=== PATIENT | female | born 1940 | race Caucasian/White ===

== ENCOUNTER → 2020-07-05 12:07 | Outpatient (BNVA) | payer MEDICARE, OTHER, SELFPAY | PROVIDERS: Visit Provider Internal Medicine Gastroenterology | DX: Z13.89 Encounter for screening for other disorder (principal) | CPT/HCPCS: Q3014 ==

== ENCOUNTER 2020-09-01 09:53 | Outpatient (REF) | payer MEDICARE, OTHER, SELFPAY ==
[2020-09-01 13:42] LABS: Ferritin 297 ng/mL (10-250)
== END 2020-09-01 09:54 | disposition home or self-care (01) ==
LOC: HO.BBR 09:53
PROVIDERS: PCP Internal Medicine; Visit Provider Internal Medicine Hematology & Oncology
DX: E83.110 Hereditary hemochromatosis (principal)
CPT/HCPCS: 36415; 82728

== ENCOUNTER 2020-09-15 09:36 | Outpatient (REF) | payer MEDICARE, OTHER, SELFPAY ==
[2020-09-15 12:52] LABS: Ferritin 259 ng/mL (10-250)
== END 2020-09-15 09:37 | disposition home or self-care (01) ==
LOC: HO.BBR 09:36
PROVIDERS: Visit Provider Internal Medicine Hematology & Oncology
DX: E83.110 Hereditary hemochromatosis (principal)
CPT/HCPCS: 36415; 82728

== ENCOUNTER 2020-09-29 10:29 | Outpatient (REF) | payer MEDICARE, OTHER, SELFPAY | END 2020-09-29 10:30 | disposition home or self-care (01) | LOC: HO.BBR 10:29 | PROVIDERS: Visit Provider Internal Medicine Hematology & Oncology | DX: Z13.89 Encounter for screening for other disorder (principal) ==

== ENCOUNTER 2020-12-01 13:05 | Outpatient (REF) | payer MEDICARE, OTHER, SELFPAY ==
[2020-12-01 15:22] LABS: Ferritin 114 ng/mL (10-250)
== END 2020-12-01 13:06 | disposition home or self-care (01) ==
LOC: HO.BBR 13:05
PROVIDERS: Visit Provider Internal Medicine Hematology & Oncology
DX: E83.110 Hereditary hemochromatosis (principal)
CPT/HCPCS: 36415; 82728

== ENCOUNTER 2021-02-07 09:14 | Outpatient (REF) | payer MEDICARE, OTHER, SELFPAY ==
--- NOTE | ~2021-02-07 | MM_ITS ---
EXAMINATION: BONE DENSITOMETRY CLINICAL INDICATION: History of osteoporosis, follow up. Other specified disorders of bone density and structure. Postmenopausal. COMPARISON: Previous BD dated 11/25/2017 and baseline BD dated 10/02/2006. TECHNIQUE: Using a [employer] DXA System (software version: 13.1) manufactured by [employer], dual-energy x-ray absorptiometry was performed of the lumbar spine and left hip. The images are of good technical quality. Summary results are attached. FINDINGS: AP SPINE L1-L4: Current: BMD 0.840 g/cm2, Z-score -1.5, T-score -2.8, osteoporosis, 2.7% increase from previous, 6.6% decrease from baseline (<5% change is not significant). Prior: BMD 0.818 g/cm2. Baseline: BMD 0.899 g/cm2. LEFT FEMUR, NECK: Current: BMD 0.680 g/cm2, Z-score -0.7, T-score -2.6, osteoporosis. Prior: BMD 0.674 g/cm2. Baseline: BMD 0.705 g/cm2. LEFT FEMUR, TOTAL: Current: BMD 0.813 g/cm2, Z-score 0.1, T-score -1.5, osteopenia, 3.3% increase from previous, 3.4% decrease from baseline (<5% change is not significant). Prior: BMD 0.787 g/cm2. Baseline: BMD 0.842 g/cm2. IDENTIFIED RISK FACTORS: Osteoporosis. Recurrent falls. History of fracture, (adult). Menopause. HISTORY OF FRACTURE: Femur/hip. Elbow. Wrist. MEDICATIONS: None listed. MM/XR DEXA axial skeleton IMPRESSION: 1. DIAGNOSIS: Osteoporosis based on the lowest T-score value of -2.8 in the lumbar spine applying World Health Organization criteria. 2. 10-YEAR FRACTURE RISK PREDICTION, FRAX: Major osteoporotic fracture (clinical spine, forearm, hip or shoulder) 27.2%. Hip fracture 8.8%. 3. Treatment Recommendations: NOF guidelines recommend consideration for treatment in postmenopausal women and men age 50 and older presenting with the following: -A hip or vertebral (clinical or morphometric) fracture. -T-score less than or equal to -2.5 at the femoral neck or spine after appropriate evaluation to exclude secondary causes. -Low bone mass at the hip or spine and a 10-year fracture probability by FRAX of greater than or equal to 3% for hip fracture or greater than or equal to 20% for major osteoporotic fracture based on the [place] adapted WHO algorithm. 4. Other Recommendations: All treatment decisions require clinical judgment and consideration of individual patient factors, including patient preferences, comorbidities, previous drug use, risk factors not captured in the FRAX model (e.g. frailty, falls, vitamin D deficiency, increased bone turnover, interval significant decline in bone density) and possible under or overestimation of fracture risk by FRAX. Additional medical evaluation for secondary cause of low bone mineral density may be appropriate. FUTURE SCAN RECOMMENDATION: People with diagnosed cases of osteoporosis or at high risk for fracture should have regular bone mineral density tests. For patients eligible for Medicare, routine testing is allowed once every 2 years. The testing frequency can be increased to one year for patients who have rapidly progressing disease, those who are receiving or discontinuing medical therapy to restore bone mass, or have additional risk factors.
== END 2021-02-07 09:15 | disposition home or self-care (01) ==
LOC: HO.MAMMO 09:14
PROVIDERS: PCP Internal Medicine; Visit Provider Internal Medicine
DX: Z13.820 Encounter for screening for osteoporosis (principal); M81.0 Age-related osteoporosis without current pathological fracture; Z78.0 Asymptomatic menopausal state; Z87.81 Personal history of (healed) traumatic fracture
CPT/HCPCS: 77080

== ENCOUNTER 2023-05-30 10:12 | Outpatient (REF) | payer MEDICARE, OTHER, SELFPAY ==
--- NOTE | ~2023-05-30 | MM_ITS ---
EXAMINATION: BONE DENSITOMETRY CLINICAL INDICATION: Osteoporosis. COMPARISON: Previous BD dated 02/07/2021 and baseline BD dated 10/02/2006. TECHNIQUE: Using a [employer] DXA System (software version: 13.1) manufactured by [employer], dual-energy x-ray absorptiometry was performed of the lumbar spine and left hip. The images are of good technical quality. Summary results are attached. FINDINGS: LEFT FEMUR, NECK: Current: BMD 0.644 g/cm2, Z-score -1.0, T-score -2.8, osteoporosis. Prior: BMD 0.680 g/cm2. Baseline: BMD 0.705 g/cm2. LEFT FEMUR, TOTAL: Current: BMD 0.801 g/cm2, Z-score 0.1, T-score -1.6, osteopenia, 1.5% decrease from previous, 4.9% decrease from baseline (<5% change is not significant). Prior: BMD 0.813 g/cm2. Baseline: BMD 0.842 g/cm2. AP SPINE L1-L4: Current: BMD 0.929 g/cm2, Z-score -0.8, T-score -2.1, osteopenia, 10.6% increase from previous, 3.3% increase from baseline (<5% change is not significant). Prior: BMD 0.840 g/cm2. Baseline: BMD 0.899 g/cm2. IDENTIFIED RISK FACTORS: Height loss, history of fracture (adult), osteoporosis, recurrent falls, menopause, secondary osteoporosis. HISTORY OF FRACTURE: Femur/hip, wrist. Other. MEDICATIONS: Calcium supplements or multivitamin, vitamin D. MM/XR DEXA axial skeleton IMPRESSION: 1. DIAGNOSIS: Severe osteoporosis based on the lowest T-score value of -2.8 in the femur neck and history of fracture applying World Health Organization criteria. 2. 10-YEAR FRACTURE RISK PREDICTION, FRAX: According to the guidelines, FRAX calculation should only be performed on patients in the osteopenia bone density category. Therefore, FRAX was not performed on this patient. 3. Treatment Recommendations: NOF guidelines recommend consideration for treatment in postmenopausal women and men age 50 and older presenting with the following: -A hip or vertebral (clinical or morphometric) fracture. -T-score less than or equal to -2.5 at the femoral neck or spine after appropriate evaluation to exclude secondary causes. -Low bone mass at the hip or spine and a 10-year fracture probability by FRAX of greater than or equal to 3% for hip fracture or greater than or equal to 20% for major osteoporotic fracture based on the [place] adapted WHO algorithm. 4. Other Recommendations: All treatment decisions require clinical judgment and consideration of individual patient factors, including patient preferences, comorbidities, previous drug use, risk factors not captured in the FRAX model (e.g. frailty, falls, vitamin D deficiency, increased bone turnover, interval significant decline in bone density) and possible under or overestimation of fracture risk by FRAX. Additional medical evaluation for secondary cause of low bone mineral density may be appropriate. FUTURE SCAN RECOMMENDATION: People with diagnosed cases of osteoporosis or at high risk for fracture should have regular bone mineral density tests. For patients eligible for Medicare, routine testing is allowed once every 2 years. The testing frequency can be increased to one year for patients who have rapidly progressing disease, those who are receiving or discontinuing medical therapy to restore bone mass, or have additional risk factors.
== END 2023-05-30 10:13 | disposition home or self-care (01) ==
LOC: HO.MAMMO 10:12
PROVIDERS: PCP Internal Medicine; Visit Provider Internal Medicine Endocrinology, Diabetes & Metabolism
DX: Z13.820 Encounter for screening for osteoporosis (principal); M81.0 Age-related osteoporosis without current pathological fracture; Z78.0 Asymptomatic menopausal state
CPT/HCPCS: 77080

== ENCOUNTER 2025-06-17 12:20 | Outpatient (REF) | payer MEDICARE, OTHER, SELFPAY ==
--- OUTSIDE RECORDS SUMMARY | 2025-06-15 10:00 | XMS_ITS | Encounter Summary ---
Author Organization [facility] Address [address] [place] [address] Care Team Providers Care Cigar Head Perforator Name Role Phone Horace Levin MD Primary Care Provider [phone] Reason for Visit * Reason Comments Follow-up Encounter Details Date Type Department Care Team (Latest Contact Info) Description 06/15/2025 10:00 AM EST Office Visit [facility] Hematology Oncology [address] [place] [address] Cheko Nieto MD [address] [place] [address] Hereditary hemochromatosis (CMS/HCC V24) (Primary Dx) Social History Tobacco Use Types Packs/Day Years Used Date Smoking Tobacco: Former Cigarettes 1 Q uit: 07/28/1980 Smokeless Tobacco: Never Tobacco Cessation:Counseling Given: Not Answered Alcohol Use Standard Drinks/Week Comments No 0 (1 standard drink = 0.6 oz pur e alcohol) Comments Unknown Sex and Gender Information Value Date Recorded Sex Assigned at Female 03/03/2025 11:41 AM EDT Legal Sex Female 7:50 AM EST Gender Identity Female 03/03/2025 11:41 AM EDT Sexual Orientation Straight 03/03/2025 11 :41 AM EDT documented as of this encounter Last Filed Vital Signs Vital Sign Reading Time Taken Comments Blood Pressure 118/41 06/15/2025 9:56 AM EST Pulse 70 06/15/2025 9:56 AM EST Temperature 36.4 C (97.5 F) 06/15/2025 9:56 AM EST Respiratory Rate - - Oxygen Saturation 99% 06/15/2025 9:56 AM EST Inhaled Oxygen Concentration - - Weight 81.6 kg (180 lb) 06/15/2025 9:56 AM EST Height - - Body Mass Index 32.92 05/12/2025 1:37 PM EDT documented in this encounter Progress Notes * Cheko Nieto MD - 06/15/2025 10:00 AM EST Diagnosis/treatment: Hereditary hemochromatosis. Interval history: The patient is an 85-year-old female who is followed in our clinic for hereditary hemochromatosis. Hemochromatosis genotyping showed with mutations in C282Y and H63D. An MRI of the abdomen with contrast on 06/23/2020 showed low signal throughout the hepatic parenchyma on T2-weighted sequences and diffusion sequences, much darker than muscle; therefore, in keeping with effects of iron deposition. There was no evidence of cirrhosis. There were no hepatic masses. She was initiated on a phlebotomy regimen every 2 weeks at [facility]. She had a syncopal episode following the first phlebotomy. She haddifficulty tolerating phlebotomies due to feeling cold . She opted to discontinue phlebotomies. The feeling cold sensation resolved. She has adhered to dietary changes including eating no red meator pork or spinach or kale. She also presented with a macrocytosis without anemia. A reticulocyte count was unremarkable. A folate level on 02/15/2020 was normal. She denies heavy alcohol use. A B12 level on 12/26/2021 was mildly depressed at 230. A methylmalonic acid was normal at 0.23. A folate level was normal. A TSH was normal. She was trialed on oral B12 but had difficulty with left-sided abdominal pain. She self-discontinued the oral B12 and the abdominal pain resolved. A CBC on 02/04/2022 showed WBC 5.5, hemoglobin 14.7 with MCV 98, platelet count 224,000. A percent transferrin saturation was 36. A ferritin was 96. A B12 level was 296. She restarted a multivitamin with B12. She is tolerating the entire vitamin with B12 well without side effects. A CBC on 06/05/2022 showed WBC 6.4, hemoglobin 14.9 with MCV 101, and platelet count 236,000. A percent transferrin saturation was 41. A ferritin was 120. A B12 level was 677. A CBC on 12/03/2022 showed WBC 5.4, hemoglobin 14.4 with MCV 101, and platelet count 225,000. A percent transferrin saturation was 52. A ferritin was 96. A B12 level was 464. A CBC on 06/04/2023 showed WBC 5.6, hemoglobin 15.1 with MCV 102, and platelet count 238,000. LFTs were normal. A percent transferrin saturation was 45. A ferritin was 104. A B12 level was 554. A folate level was 14.7. A CBC on 12/15/2023 showed WBC 5.3, hemoglobin 14.2 with MCV 101, and platelet count 230,000. LFTs were normal. A percent transferrin saturation was 49. A ferritin was 92. A B12 level was 641. A CBC on 06/15/2024 showed WBC 4.8, hemoglobin 14.3 with MCV 101, and platelet count 225,000. A percent transferrin saturation was 59. A ferritin was 103. A B12 level was 685. A CBC on 10/08/2024 showed WBC 5.9, hemoglobin 14.1 with MCV 101, and platelet count 212,000. LFTs were normal. A percent transferrin saturation was 49. A ferritin was 121. A B12 level was 585. An echocardiogram on 05/12/2025 showed LVEF 55-60% and was otherwise unremarkable. A CBC on 06/10/2025 showed WBC 4.4, hemoglobin 14.0 with MCV 100, and platelet count 195,000. LFTs were normal. A percent transferrin saturation was 47. A ferritin was 117. She denies headaches or visual changes. She denies cough, hemoptysis, dyspnea on exertion. She denies nausea or abdominal pain. She reports an intact appetite and stable weight. Review of systems: The remainder of a 10 point review of systems was unremarkable. Physical examination: HEENT: Sclerae anicteric, normal oropharyngeal membrane. Neck: No lymphadenopathy. Lungs: Clear to auscultation. Heart: No murmurs. Abdomen: Soft, nontender, no organomegaly or masses. Extremities: No edema. Skin: No rash. Neurologic: Normal gait. Assessment/plan: The patient is an 85-year-old female who is followed in our clinic for history of hereditary hemochromatosis. She had difficulty tolerating phlebotomies due to feeling cold . She opted to discontinue phlebotomies. The ferritin decreased sharply following the initial phlebotomies. She adheres to dietary changes and eats no red meat or pork or spinach or kale. The iron studies remain in the normalrange. At age 85, she is unlikely to accumulate enough hepatic iron to cause liver damage. LFTs have remained normal. An echocardiogram in 04/2025 was unremarkable. She also presented with a macrocytosis without anemia. A reticulocyte count was normal. LFTs have remained normal. A TSH was normal. She denies heavy alcohol use. A B12 level was mildly depressed on 12/26/2021. However, methylmalonic acid was in the normal range. She was trialed on oral B12, but had difficulty left-sided abdominal pain, which resolved off B12. Afollow-up B12 level on 02/04/2022 was normal. She restarted a multivitamin with B12 and is tolerating therapy well. The B12 level remains in the normal range. We will monitor CBCs, LFTs, iron studies, and B12 levels. Visit summary: The patient is an 85-year-old female who is followed for hereditary hemochromatosis. Iron studies remain in the normal range off of the phlebotomy regimen. LFTs remain in the normal range. An echocardiogram in 04/2025 was unremarkable. At age 85 she is unlikely to accumulate enough hepatic iron to c ause liver damage. We will continue to observe iron studies and LFTs off phlebotomies. documented in this encounter Plan of Treatment Upcoming Encounters Date Type Department Care Team (Late st Contact Info) Description 06/22/2025 9:00 AM EST Office Visit Urogynecology [address] [phone] Shahnaz Luo MD [address] [place] [address] [address] [place] [address] 08/04/2025 10:00 AM EST Office Visit [facility] - [address] [phone] Horace Levin MD [address] [place] [address] [place] [address] 12/09/2025 9:30 AM EDT Office Visit [facility] Hematology Oncology [address] [place] [address] Cheko Nieto MD [address] [place] [address] documented as of this encounter Goals Goal Patient Goal Type Associated Problems Recent Progress Patient-Stated? Author LTG's 12 visits General Yes Otis Overton, PT Note: Pt will reports buttock pain of no more than 2/10 during standing or walking. Pt will demonstrate a 1 grade in core and LE strength deficits to increase tolerance to household IADL's. Pt will be Independent and compliant with final HEP. Pt will I demonstrate proper technique for sup<->sit transfers in 5/5 trials. documented as of this encounter Visit Diagnoses Diagnosis Hereditary hemochromatosis (CMS/HCC V24)- Primary Hereditary hemochromatosis documented in this encounter Care Teams Cigar Head Perforator Relationship Specialty Start Date End Date Horace Levin MD [address] [place] [address] PCP - General Internal Medicine 09/01/24 documented as of this encounter
--- NOTE | ~2025-06-17 | MM_ITS ---
EXAMINATION: DXA BONE DENSITY AXIAL HISTORY: OSTEOPOROSIS TECHNIQUE: path intelligence Dual energy absorptiometry (DEXA) of the lumbar spine, total left hip, and femoral neck was performed. COMPARISON: Comparison is made with the prior examination dated 05/30/2023. FINDINGS: The bone mineral density of the lumbar spine is 0.888 g/cm2, corresponding to a T-score of -2.4, and a Z-score of -1.1. This is indicative of osteopenia. This represents a BMD change of -4.4% compared to the prior exam. This is statistically significant. The bone mineral density of the left total hip is 0.792 g/cm2, corresponding to a T-score of -1.7, and a Z-score of 0.1. This is indicative of osteopenia. This represents a BMD change of -1.1% compared to the prior exam. This is not statistically significant. The bone mineral density of the left femoral neck is 0.676 g/cm2, corresponding to a T-score of -2.6, and a Z-score of -0.6. This is indicative of osteoporosis. This represents a BMD change of 5.0% compared to the prior exam. FRACTURE RISK: The FRAX index suggests a ten year probability of major osteoporotic fracture of 26.7%, and of hip fracture 9.0%. MM/XR DEXA axial skeleton IMPRESSION: Based on bone mineral density, and according to World Health Organization (WHO) criteria, the diagnosis is consistent with osteoporosis. Statistically, 68% of repeat scans fall within 1 SD (+/- 0.010 g/cm2 for AP spine L1-L4) and 1 SD (+/- 0.012 g/cm2 for femur total) FRAX is a trademark of the [employer]'s [place] for Metabolic Bone Disease, a World Health Organization (WHO) Collaborating Center. Electronically signed by: Eze Henley MD 06/17/2025 01:09 PM [facility]
--- OUTSIDE RECORDS SUMMARY | 2025-06-17 08:45 | XMS_ITS | Encounter Summary ---
Author Organization [facility] Address [address] [place] [address] Care Team Providers Care Glass Fitter Name Role Phone Horace Levin MD Primary Care Provider [phone] Reason for Visit * Reason Comments Hyperlipidemia Thyroid Problem Encounter Details Date Type Department Care Team ([facility] Contact Info) Description 06/17/2025 8:45 AM EST Office Visit Adult Medicine [facility] [place] [address] [place], [place] [phone] Horace Levin MD [address] [place] [address] Hypothyroidism, unspecified type (Primary Dx); Hyperlipidemia, unspecified hyperlipidemia type; Elevated blood pressure reading; Hand cramp Social History Tobacco Use Types Packs/Day Years Used Date Smoking Tobacco: Former Cigarettes 1 Q uit: 07/28/1980 Smokeless Tobacco: Never Alcohol Use Standard Drinks/Week Comments No 0 [...] Sign Reading Time Taken Comments Blood Pressure 120/70 06/17/2025 9:19 AM EST Pulse 69 06/17/2025 8:38 AM EST Temperature 36.6 C (97.8 F) 06/17/2025 8:38 AM EST Respiratory Rate - - Oxygen Saturation - - Inhaled Oxygen Concentration - - Weight 81.6 kg (180 lb) 06/17/2025 8:38 AM EST Height 157.5 cm (5' 2 ) 06/17/2025 8:38 AM EST Body Mass Index 32.92 06/17/2025 8:38 AM EST documented in this encounter Patient Instructions * Attachments The following attachments cannot be sent through Care Everywhere. * Diet: DASH (Colombian) * Exercise: General Info (Colombian) * Hypertension (Colombian) * Healthy Diet: Heart (Colombian) documented in this encounter Progress Notes * Horace Levin MD - 06/17/2025 8:45 AM EST CHIEF COMPLAINT: Hyperlipidemia and Thyroid Problem IDENTIFIER: Jessika Raymond is a 85 y.o. old female. HPI: History of Present Illness The patient is an 85-year-old female who presents for evaluation of blood pressure, cholesterol management, thyroid management, urinary incontinence, and back pain. She reports a recent consultation with her gyro compass tester, Dr. Nieto, for hereditary hemochromatosis, during which her blood pressure was recorded as 118/41. She did not experience any dizziness at that time. A month prior, her management development specialist had also measured her blood pressure, which was within normal limits. She has no known history of hypertension. She has been under the care of an arthritis specialist for back pain, which has shown improvement. She is currently undergoing physical therapy sessions and has been advised to use a cane for longer distances. She is able to ambulate without the aid of a cane within her home. She rates her current back pain as significantly improved, attributing this to the exercises prescribed by her therapist. She has transitioned from using a cane to a walker. She has a scheduled follow-up appointment with her arthritis specialist in July 2025. She recently had blood work done by her management development specialist, which showed normal thyroid function. She is scheduled for a repeat test on 07/18/2025. She continues to take levothyroxine 75 mcg and reportsfeeling well on this dosage. Her TSH level is currently at 7.8, but she feels fine at that level. She is going for a bone density test at 12:30 this afternoon at [facility]. She maintains a balanced diet, primarily consisting of home-cooked meals, and avoids bread, rice, and pasta. She consumes gluten-free products and takes vitamins for cholesterol management. She has been unable to access her [email or web address] account to view her cholesterol levels. She does not consume red meat or fried food but admits to a preference for eggs and chips. She consumes goat butter, olive oil,avocado oil, and a variety of vegetables, including potatoes, salads, tomatoes, greens, beets, cabbage, [place] sprouts, carrots, broccoli, cauliflower, and spinach. She also consumes blueberries, cantaloupe, and kiwis. She occasionally indulges in [place] nuts, cashews, pecans, gluten-free pastries, and dark chocolate. She admits to a high salt intake. She consumes collagen drinks daily and takes calcium and magnesium supplements. She reports an incident this morning where her hand locked while brushing her teeth. She is unsure if she needs to increase her magnesium intake. She has an upcoming appointment with a urogynecologist on Friday. She experiences urinary incontinence, necessitating the use of pads, which are sometimes insufficient. She has been advised to perform Kegel exercises to strengthen her pelvic floor. Diet: Balanced diet, primarily home-cooked meals, avoids bread, rice, and pasta, consumes gluten-free products, goat butter, olive oil, avocado oil, a variety of vegetables, fruits, nuts, and collagen drinks. Living Condition: Lives with who has low vision and prostate enlargement. ROS: The remainder of review of systems is noncontributory. 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 Overweight (BMI 25.0-29.9) 11/19/2014 Osteoporosis 08/19/2014 Anxiety state 08/11/2014 Hypothyroidism 05/02/2014 SOCIAL HISTORY: Social History Tobacco Use Smoking status: Former Current packs/day: 0.00 Average packs/day: 1.0 packs/day Types: Cigarettes Quit date: 07/28/1980 Years since quittin.9 Smokeless tobacco: Never Substance Use Topics Alcohol use: No FAMILY HISTORY: Family Status Relation Name Status Father Mother No partnership data on file Family History[1] ACTIVE MEDICATIONS: Medications Taking[2] ALLERGIES: Albuterol, Amoxicillin-pot clavulanate, Atorvastatin, Azithromycin, Clavulanic acid, Doxycycline, Escitalopram, Fluticasone, Gluten, Lactose, Levofloxacin, Penicillins, Rosuvastatin, Simvastatin, Sulfa (sulfonamide antibiotics), and Sulfamethoxazole-trimethoprim PHYSICAL EXAM: Blood pressure 120/70, pulse 69, temperature 36.6 ??C (97.8 ??F), height 1.575 m (62 ), weight 81.6kg (180 lb). Body mass index is 32.92 kg/m??. BMI is greater than 25.0 (above the normal range) - see Plan Physical Exam General Appearance: Normal. Vital signs: Within normal limits. HEENT: Within normal limits. Respiratory: Clear to auscultation, no wheezing, rales or rhonchi. Cardiovascular: Regular rate and rhythm, no murmurs, rubs, or gallops. Skin: Warm and dry, no rash. Neurological: Normal. LABS: Results Labs - White Cell Count: Mildly decreased - Iron Level: Good - B12 Level: Good - Total Cholesterol: 12/2024, 237 - LDL Cholesterol: 12/2024, 150 - Triglycerides: 12/2024, Decreased - HDL Cholesterol: 12/2024, Fine - Thyroid Level: 7.8 Imaging - Heart Test: Minor changes with the valve but nothing that would significantly affect the functioning of the heart IMPRESSION: 1. Hypothyroidism, unspecified type 2. Hyperlipidemia, unspecified hyperlipidemia type 3. Elevated blood pressure reading PLAN: ALL MEDICATIONS WERE REVIEWED AND RECONCILED No orders of the defined types were placed in this encounter. Assessment & Plan 1. Blood pressure management: - Her blood pressure readings have shown variability, with a recent reading of 118/41 during a visit to Dr. Nieto and a current reading of 143/60. Repeat BP improved to 120/70 - She reports no dizziness. - A recheck of her blood pressure will be conducted before she leaves the clinic today. - She has no known history of hypertension. 2. Cholesterol management: - Her total cholesterol has increased to 237 from 230, and her LDL cholesterol has risen to 150 from 146 since her last check in 12/2024. - Triglycerides have decreased slightly, and HDL levels remain stable. - She is advised to reduce her intake of starchy foods such as bread, rice, pasta, red meat, deep-fried foods, and egg yolks. She is encouraged to consume more egg whites, olive oil, and avocado oil. - She is advised to limit her consumption of goat butter, pastries, and dark chocolate. She is advised to continue with her core meals, which include vegetables, beans, and chicken, and to limit snacking and collagen drinks until her next recheck in 3 months. 3. Thyroid management: - She is currently on levothyroxine 75 mcg, and her thyroid levels are stable but not optimal. - She reports feeling well at her current dosage. - Her thyroid levels will be rechecked on 07/18/2025. 4. Back pain: - She reports improvement in her back pain with ongoing physical therapy. - She can now walk inside her house without a cane and uses a cane for longer distances. - She is advised to continue her physical therapy sessions and home exercises. 5. Urinary incontinence: - She reports experiencing urinary incontinence, particularly at night. - She has an upcoming appointment with a urogynecologist for further evaluation and management. - Kegel exercises were discussed as a potential intervention. 6. Hand cramping: - She reports experiencing hand cramping while brushing her teeth. - Her calcium levels are normal, but magnesium and phosphorus levels have not been routinely checked. - These will be assessed in her next lab work. - She is advised to continue her current calcium and magnesium supplements until further notice. ADDITIONAL ORDERS: None Horace Levin MD on 06/17/2025 at 10:13 AM EST I have obtained verbal consent from Jessika Raymond prior to the recording. I have advised Jessika Raymond that she may refuse the recording and require the recording to be turned off at any time during this encounter. [1] Family History Problem Relation Name Age of Onset Stroke Father [place] at 79 Breast cancer Mother at 68 [2] Outpatient Medications Marked as Taking for the 06/17/25 encounter (Office Visit) with Horace Levin MD Medication Sig Dispense Refill acetaminophen (TYLENOL) 500 mg tablet Take 2 tablets (1,000 mg total) by mouth every 8 (eight) hours as needed. B complex-vitamin C-folic acid (DIALYVITE) 100-1 mg tablet Take by mouth daily. calcium carbonate/vitamin D3 (CALCIUM WITH VITAMIN D3 ORAL) Take 2 tablets by mouth 2 (two) times aday. cholecalciferol (VITAMIN D-3) 50 mcg (2,000 unit) tablet Take 2,000 Units by mouth daily. EPINEPHrine (EpiPen 2-Rogerio) 0.3 mg/0.3 mL injection Inject 0.3 mL (0.3 mg total) into the thigh oncedaily as needed. fish oil/omega-3/vitamin E (OMEGA-3 FATTY ACIDS PO) Take 1,500 mg by mouth 2 (two) times a day. levothyroxine (SYNTHROID, LEVOTHROID) 75 mcg tablet Take 1 tablet (75 mcg total) by mouth 1 (one) time each day before breakfast. MAGNESIUM ORAL Take 100 mg by mouth daily. multivitamin-folic acid-biotin (Mwqe-Yanx-Nyifw, wn-DA-wkyxoq,) 400-2,000 mcg tablet Take by mouth daily. PROTEIN HYDROLYSATE-COLLAGEN ORAL by Does not apply route. theanine 200 mg capsule Take by mouth. UNABLE TO FIND Misc Natural Products (LEG VEIN & CIRCULATION) TABS : Take by mouth daily UNABLE TO FIND MULTIPLE VITAMINS-CALCIUM PO Take by mouth daily documented in this encounter Plan of Treatment Upcoming Encounters Date Type Department Care Team (Late st Contact Info) Description 06/22/2025 9:00 AM EST Office Visit Urogynecology - [address] [phone] Shahnaz Luo MD [address] [place] [address] [address] [place] [address] 08/04/2025 10:00 AM EST Office Visit Adult Medicine [place] - [address] [phone] Horace Levin MD [address] [place] [address] 12/09/2025 9:30 AM EDT Office Visit [facility] Hematology Oncology [address] [place] [id number] Cheko Nieto MD [address] [place] [address] Scheduled Orders Name Type Priority Associated Diagnoses Orde r Schedule Magnesium Lab Routine Hand cramp Expected: 06/17/2025, Expires: 12/15/2025 Phosphorus Lab Routine Hand cramp 1 Occurrences starting 06/17/2025 until 06/17/2026 documented as of this encounter Goals Goal Patient Goal Type Associated Problems Recent Progress Patient-Stated? Author LTG's 12 visits General Yes Otis [place], PT Note: Pt will reports buttock pain of no more than 2/10 during standing or walking. Pt will demonstrate a 1 grade in core and LE strength deficits to increase tolerance to household IADL's. Pt will be Independent and compliant with final HEP. Pt will I demonstrate proper technique for sup<->sit transfers in 5/5 trials. documented as of this encounter Visit Diagnoses Diagnosis Hypothyroidism, unspecified type- Primary Hyperlipidemia, unspecified hyperlipidemia type Elevated blood pressure reading Elevated blood pressure reading without diagnosis of hypertension Hand cramp documented in this encounter Care Teams Glass Fitter Relationship Specialty Start Date End Date Horace Levin MD [address] [place] [address] PCP - General Internal Medicine 09/01/24 documented as of this encounter
--- OUTSIDE RECORDS SUMMARY | 2025-06-17 12:47 | XMS_ITS | Data Portability ---
Author Organization [place] [facility] Address [address] [place] [phone] Care Team Providers Care Owner [employer] Name Role Phone [facility] Prim sujatha Care Provider Assessment Encounter Date Assessment Date Assessment LastModified by Organization Details LastModified Time 06/27/2023 06/27/2023 Time On Scene with Patient: 00:30:43 Brief Overview: 83 y/o female c/o insect bite on the left side of her neck 8 days ago. the area is tender at times and looks red. she has been cleaning it with alcohol and applying cortisone and triple antibiotic ointment. she is worried it could be a tick bite of a stinger from a bee that is still attached to her neck. she denies fever, chills, body aches, GOLD, nausea, vomiting, cp, sob. Vital Signs: BP 136/78, HR 74, RR 18, T 97.9, O2 99% RA Exam: pleasant 83 y/o female well appearing, alert NAD sitting at her kitchen table. lungs: CTAB no wheezes rales or rhonchi. heart: RRR no murmur rubs or gallops. mouth: moist mucous membranes, no edema, erythema. skin: left lateral neck two small scabbed lesions, with localized erythema, no warmth, no drainage or edema. mild tenderness on palpation. DDx considered, with rationale: Shingles: considered but no vesicular lesions in dermatomal pattern. Foreign body: considered but no foreign body noted on exam. Cellulitis: considered but she is afebrile, no warmth, edema or drainage on exam. Sepsis: considered but she is afebrile, VS stable she does not appear septic. Results/ work up: n/a Proper Personal Protective Equipment (PPE), including gloves, eye protection and masks were donned and doffed appropriately and all equipment cleaned using approved technique with germicidal disposable wipes prior to and after care of this patient according to [facility]'s infection prevention protocols. [email or web address] Not available 06/27/2023 13:13:45 Plan of Treatment Reminders Order Date Submit Date Provider Last Modified By Organization Details Last Modified Time Details Appointments None recorded. Lab None recorded. Referral None recorded. Procedures None recorded. Surgeries None recorded. Imaging None recorded. Medication Orders mupirocin 2 % topical ointment 2022 023 [id number], [address] [facility] , [place], [address], 12:29:49 Patient TargetsNo targets recorded. Patient Instructions Encounter Date Encounter Id Patient Instructions Last Modified By Organization Details Last Modified Time 06/27/2023 [id number] Thank you for yo ur visit with [facility] today. We cannot always find the exact cause of your symptoms during your initial visit. Please follow up with your primary care provider or specialist within 2-3 days to be rechecked or seek medical attention if your symptoms do not go away or get worse. If you develop any new or worsening symptoms and need after hours care, please go to nearest ER and/or call 911. If you have additional concerns or develop a change in your condition between 8am-10pm, please call [facility] at [phone] to help navigate your care. Thank you for your visit with [facility] today. You were seen today for treatment of a wound. Please seek immediate medical attention if you develop increased pain, redness, or swelling of your wound. Also, you should be evaluated if the wound becomes warm to the touch, or if there is a cloudy, yellow-brown discharge from the wound. There is always the possibility of a hidden tendon injury or foreign object in the wound. If you have problems moving your arm or leg, or if you see red streaks up the arm or leg, seek immediate medical attention. If you develop any new or worsening symptoms and need after hours care, please go to nearest ER and/or call 911. If you have additional concerns or develop a change in your condition between 8am-10pm, please call [facility] at [phone] to help navigate your care. [email or web address] Not available 06/27/2023 13:19:26 Reason for Referral None Reported. Procedures Surgical History Date Name Laterality Status Provider Name and Address Organization Details Recorded Time operation on hip joint completed BLU Greene [address], [place], [address], [place] [facility] 06/27/2023 12:18:34 Appendectomy completed BLU Greene [address], [place], [address], [place] [facility] 06/27/2023 12:18:49 Imaging Results None recorded. Procedure Notes None recorded. Medical Equipment None Reported. Allergies Allergen ID Allergen Name Allergen Category Reaction Reaction Severity Criticality Documentation Date Start Date Code Code System Note Provider Name and Address Organization Details Recorded Time 028804 albuterol medicatio n Not available Not available Not available 06/27/2023 435 RxNorm BLU Greene [address] [place], [address], [place] [facility] 12:13:19 [id number] Crestor medicatio n Not available Not available Not available 06/27/2023 46117 4 RxNorm BLU Greene [address] [place], [address], [place] [facility] 12:13:30 948185 Levaquin medicatio n Not available Not available Not available 06/27/2023 15627 2 RxNorm BLU Greene [address] [place], [address], [place] [facility] 12:13:43 197742 Lexapro medicatio n Not available Not available Not available 06/27/2023 97198 1 RxNorm BLU Greene [address] [place], [address], [place] [facility] 12:13:50 041381 Lipitor medicatio n Not available Not available Not available 06/27/2023 31619 5 RxNorm BLU Greene [address], [place], [address], [place] [facility] 12:14:05 133994 Product containin g penicilli n (product) medicatio n Not available Not available Not available 06/27/2023 09897 8001 SNOMED Sheela BLU Sandoval [address], [place], [address], [place] [facility] 12:14:14 732729 simvastat in medicatio n Not available Not available Not available 06/27/2023 15627 RxNorm Sheela BLU Sandoval [address], [place], [address], [place] [facility] 12:14:30 058905 Zithromax medicatio n Not available Not available Not available 06/27/2023 91139 4 RxNorm Sheela BLU Sandoval [address], [place], [address], [place] [facility] 12:14:46 679127 cephalexi n medicatio n Not available Not available Not available 06/27/2023 2231 RxNorm Sheela VillafuerteBLU massey [address], [place], [address], [place] [facility] 12:15:11 [id number] doxycycli ne Not available Not available Not available Not available 06/27/2023 3640 RxNorm Sheela BLU Sandoval [address], [place], [address], [place] [facility] 12:15:31 Medications Name Sig Start Date Stop Date Status Note LastModified by Organization Details LastModified Time Synthroid 100 mcg tablet TAKE 1 TABLET BY MOUTH EVERY DAY active Not Available Not Available No t Available Alrex 0.2 % eye drops,suspe nsion APPLY ONE DROP INTO BOTH EYES TWICE A DAY OR NEEDED active Not Available Not Available No t Available mupirocin 2 % topical ointment APPLY A SMALL AMOUNT TO THE AFFECTED AREA BY TOPICAL ROUTE 2 TIMES PER DAY X 4-7 DAYS active Not Available Not Available No t Available ibuprofen 600 mg tablet TAKE 1 TABLET BY MOUTH EVERY 6 HOURS NEEDED FOR PAIN FOR UP TO 7 DAYS. active Not Available Not Available No t Available chlorhexidi ne gluconate 0.12 % mouthwash RINSE AND SWISH WITH 1/2 OUNCE BY MOUTH, THEN SPIT. USE 3 TIMES A DAY FOR 2 WEEKS 06/27 completed Not Available Not Available Not Available Vitals Date Recorded Body temperature Respiratory rate Heart rate Oxygen saturation Systolic And Diastolic Provider Name and Address Organization Details Last Updated DateTime 97.9 [degF] 18 /min 74 /min 99 % 136/78 mm[Hg] Not Available [facility] 12:15:19 Social History Question Answer Notes LastModified by [employer] Details LastModified Time Tobacco Smoking Status Former Smoker [facility] [place], [address], [place] [facility] 06/27/2023 12:17:47 Fall Risk: Do You Feel Unsteady When Standing Or Walking? No Information not available 06/27/2023 Excessive Alcohol Or Drug Use No Information not available 06/27/2023 Does This Patient Have A PCP? Yes [email or web address] Information not available 06/27/2023 Has The Patient Seen Their PCP In The Past 6 Months? Yes [email or web address] Information not available 06/27/2023 What Is Your Housing Situation Today? I Have Housing [email or web address] Information not available 06/27/2023 Sex: Unknown Functional Status Question Answer Note LastModified by [employer] Details LastModified Time Do you use any illicit or recreational drugs? No Information not available 06/27/2023 What is your level of alcohol consumption? None [email or web address] Information not available 06/27/2023 Mental Status None recorded. Family History Relationship Description Onset Age of this Age Resolved Age Notes LastModified by Organization Details LastModified Time Mother Malignant neoplasm of breast [email or web address] Not available 06/27 12:17:12 Father Myocardial infarction [email or web address] Not available 07/2022 12:17:28 Medical History Condition Response Diabetes N Coronary Artery Disease N CHF N Parkinson's Disease N Cancer N Stroke N Dementia N Hypothyroidism N Asthma N COPD N Depression N High Cholesterol Y Rheumatoid Arthritis N Pulmonary Embolism N Hypertension N Osteoporosis Y A-fib N Kidney Disease N Gynecological HistoryNo gynecological history recorded. Obstetrics History GPAL:G 0 P 0 0 0 0 Past Encounters Encounter ID Performer Location Encounter Start Date Encounter Closed Date Diagnosis/Indication Diagnosis SNOMED-CT Code Diagnosis ICD10 Code Diagnosis IMO Codes Diagnosis Note [id number] [facility] [address] [place] [address] 06/27/2023 12:10:06 06/27/2023 18:03:35 Bite of nonvenomous arthropod 456277540 W57.XXXA Status of condition: Acute. Testing/Re sults: n/a Discussion :suspect insect bite, since pt felt the sting/ bite right when it occurred.n o signs of infection noted today.keep the area clean and wash with warm water and soap. pat dry. no not clean with alcohol.st art Rx mupirocin ointment 2% apply to affected area bid x 4-7 days.recom mend cool compress prn. Plan & Management :follow up with pcp in 3-5 days or sooner prn.go to the ER with worsening symptoms increased pain, redness or lesions spread, fever, chills, cp, sob, edema, GOLD, vomiting, purulent drainage, warmth. Health Concerns Section Related Observation LastModified by Organization Detai ls LastModified Time None Recorded Concern Status LastModified by Organization Details LastModified Time None Recorded Advance Directives Directive None Recorded Payers Insurance Date Sequence Insurance Name Policy Number Policy Dumont Covered Member ID Dumont Member ID Guarantor Name 06/27/2023 1 *SELF PAY* Jessika Raymond [id number] Jessika Raymond 07/02/2023 1 MEDICARE B-[place]: [employer] Jessika Raymond [id number] Jessika Raymond 08/09/2023 2 [facility] ([facility]DEMNITY) [id number] Jessika Raymond Notes Date Note Type Note Provider Name and Address Organization Details Recorded Time 06/27/2023 text/html General HPI Template - DHReported by Patient 83 y/o female new to and provider with hx of hyperlipidemia, osteoporosis, anxiety, Mimi's thyroiditis, IBS, hemochromotosis, 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 pt reports on 06/19 she was coming in from outside when something flew into her neck and stung/ bit her. she came into her house and applied cool compress. lesion is tender. she was reading online that if it was a bee to be sure the stinger was not still attached use a credit card and rub it over the area multiple times. she states she did this and did see a smal black speck came off. she wanted to have the area checked. no fever, cp, sob, wheezing, other skin rash, redness, warmth, edema, drainage. pt worried she could have foreign body or tick bite. pt denies known tick bite, denies walking in wooded or tall grassy areas, no pets at home. BLU Greene [address] [place] [address] [place], [address], [place] [facility] 06/27/2023 13:20:13 OBGyn Episode No OBEpisode recorded.
--- OUTSIDE RECORDS SUMMARY | 2025-06-17 12:47 | XMS_ITS | Patient Health Record ---
Author Organization [facility] [place] Address [address] [place] [address] Care Team Providers Care Shop Laborer Name Role Phone Lilo Lange Primary Care Provider Beth Hairston Unavailable [phone] Allergies Allergen (clinical drug ingredient) Drug/Non Drug Allergy documented on EMR Reaction Allergy Type Onset Date Status albuterol Albuterol Unknown Drug Allergy Active amoxicillin / clavulanate Augmentin Unknown Drug Allergy Active sulfamethoxazole / trimethoprim Bactrim Unknown Drug Allergy Active rosuvastatin Crestor Unknown Drug Allergy Acti ve erythromycin Erythromycin diarrhea Drug Allergy A ctive Fluticasone Furoate Unknown Drug Allergy Active levofloxacin Levofloxacin Unknown Drug Allergy A ctive escitalopram Lexapro Unknown Drug Allergy Acti ve atorvastatin Lipitor Unknown Drug Allergy Acti ve albuterol ProAir HFA Unknown Drug Allergy Active simvastatin Simvastatin Unknown Drug Allergy Act ziggy sulfamethoxazole / trimethoprim Sulfamethoxazole-Tri methoprim Unknown Drug Allergy Active azithromycin Zithromax Unknown Drug Allergy Acti ve doxycycline Doxycycline Unknown Drug Allergy Act ziggy escitalopram Escitalopram Unknown Drug Allergy A ctive Gluten Gluten Unknown Allergy Active Lactose (Allergy) Unknown Allergy Ac tive Reason For Referral No Information Medications Medication SIG (Take, Route, Frequency, Duration) Notes Start Date End Date Status Nasal [place] Not-Taki ng Tirosint 112 MCG as directed Orally Not-Taking Hair Skin Nails Not- Taking Vitamin D3 1000 UNIT 1 capsule Orally On ce a day Not-Taking Probiotic Not-Taking [place] 3 Not-Taking Biotin Not-Taking Vitamin B-Complex No t-Taking Eye Drops Not-Taking Calcium Not-Taking Multivitamins as directed Orally Not-Taking Melatonin Not-Taking Theanine 200 MG as directed Orally Active Citalopram Hydrobromide 10 MG TAKE 1 TABLET BY MOUTH EVERY DAY Oral; Duration: 90 Not-Taking Synthroid 100 MCG 1 tablet on an empty stomach in the morning Orally Once a day Active Azithromycin 250 MG TAKE 2 TABLETS BY MOUTH TODAY, THEN TAKE 1 TABLET DAILY FOR 4 DAYS Oral; Duration: 5 Not-Takin g - Active Vitamin B12 Not-Taki ng Aspercreme 10 % as directed External ly bid; Duration: 30 days 02/12/2013 Not-Takin g Benadryl Not-Taking LORazepam 0.5 MG 1 tablet at bedtime as needed Orally Once a day Not-Taking Tylenol Not-Taking [place] 435 MG as directed Orally Not-Taking Social History Tobacco Use: Social History Observation Description Date Details (start date - stop date) Former Smoker NA - NA Tobacco Use/Smoking Question Answer Notes Are you a: former smoker Additional Findings: Tobacco Non-User Current no n-smoker Alcohol Screen Question Answer Notes Did you have a drink containing alcohol in the p ast year? No Points 0 Interpretation Negative Tobacco use other than smoking: Question Answer Notes Are you an other tobacco user? No Problems Problem Type SNOMED Code ICD Code Onset Dates Problem Status W/U Status Risk Notes Problem Disorder of joint of ankle and/or foot (583631109) Arthritis - Degenerative (719.97) Active confirmed Encounters Encounter Location Date Provider Diagnosis [facility] [place] [address] [place] [address] 12/13/2024 Beth Sloan Plan Of Treatment Pending Test Test Name Order Date X ray : Foot, right 3V 04/12/2022 [id number], Toes 04/12/2022 Insurance Providers Payer Name Payer Address Payer Phone Subscriber Number Group Number Insured Name Patient Relationship to Insured Coverage Start Date Coverage End Date Medicare [facility] [address] [place] [address] [id number] Jessika Raymond Self - patient is the insured [facility] [address] [facility] [address] [place] [address] [phone] [id number] Jessika Raymond Self - patient is the insured Medical (General) History Medical History History ICD Code anxiety broken bones cataracts chicken pox measles osteoporosis thyroid disorder joint implants/screws transfusions Arthritis Back,Hip,and Knee pain Headaches/Migraines chronic sinusitis Mumps hypothyroid IBS nonceliac-gluten sensitivity Depression Bone implants/screws Surgical History Surgery Date(Month/Year) elbow surgery 2006 bladder surgery hemocromotosis right leg - screws left elbow appendectomy 09/17 cataract surgery Hospitalization History Reason Date(Month/Year) fractured arm 2007
--- OUTSIDE RECORDS SUMMARY | 2025-06-17 12:47 | XMS_ITS | Patient Health Record ---
Author Organization [facility] Address [address] [place] [address] Care Team Providers Care Technical Healthcare Consultant Name Role Phone Fabián Diamond Jr [phone] Reason For Referral No Information Plan Of Treatment No Information
--- OUTSIDE RECORDS SUMMARY | 2025-06-17 12:47 | XMS_ITS | Encounter Summary ---
Author Organization [facility] Address [address] [place] [address] Care Team Providers Care Reading Interventionist Name Role Phone Horace Levin MD Primary Care Provider [phone] Encounter Details Date Type Department Care Team (Late Contact Info) Description 05/26/2025 Results [place] [facility] [place] [address] [place] [address] Horace Levin MD [address] [place], [place] Social History Tobacco Use Types Packs/Day Years [...] AM EDT documented as of this encounter Plan of Treatment Upcoming Encounters Date Type Department Care Team (Late Contact Info) Description 06/22/2025 9:00 AM EST Office Visit Urogynecology [address] [phone] Shahnaz Luo MD [address] [place] [address] [address] [place] [address] 08/04/2025 10:00 AM EST [place] [facility] [place] [address] [place] [address] Horace Levin MD [address], [place] 12/09/2025 9:30 AM EDT Office Visit [facility] Hematology Oncology [address] [place] [address] Cheko Nieto MD [address] [place] [address] documented as of this encounter [...] documented as of this encounter Visit Diagnoses Not on filedocumented in this encounter Care Teams Reading Interventionist Relationship Specialty Start Date End Date Horace Levin MD [address] [facility] [place] PCP - General Internal Medicine 09/01/24 documented as of this encounter
--- OUTSIDE RECORDS SUMMARY | 2025-06-17 12:47 | XMS_ITS | Clinical Summary ---
Author Organization [facility] Address [address] [place] [address] Care Team Providers Care Vending Stand Supervisor Name Role Phone Makeda Levin MD Primary Care Provider [phone] Allergies Active Allergy Reactions Criticality Noted Date Comments Albuterol 05/26/2020 Amoxicillin-Pot Clavulanate 05/29/20 20 Sulfamethoxazole-Trimethoprim 2019 Rosuvastatin 05/26/2020 Doxycycline 05/26/2020 Fluticasone 05/26/2020 Gluten Meal 05/26/2020 Lactose 05/26/2020 Levofloxacin 05/26/2020 Escitalopram 05/26/2020 Atorvastatin 05/26/2020 Penicillins 05/26/2020 Clavulanic Acid 05/26/2020 Simvastatin 05/26/2020 Sulfa Antibiotics 05/26/2020 Azithromycin 05/26/2020 Medications Medication Sig Dispensed Refills Start Date End Date Status cetirizine (ZyrTEC) 10 MG tablet Take 1 tablet (10 mg total) by mouth daily. 0 Active levothyroxine (SYNTHROID) tablet 100 mcg Take 1 tablet (100 mcg total) by mouth every morning on an empty stomach. 0 Active Magnesium 100 MG CAPS Take 100 mg by mouth daily. 0 Active Multiple Vitamin (HEALTHY HAIR/SKIN/NAILS) TABS Take by mouth daily. 0 Active Misc Natural Products (LEG VEIN & CIRCULATION) TABS Take by mouth daily. 0 Active Multiple Vitamins-Minerals (EYE SUPPORT PO) Take by mouth daily. 0 Active OMEGA-3 FATTY ACIDS PO Take 1,500 mg by mouth 2 (two) times a day. 0 Active Cholecalciferol (VITAMIN D) 50 MCG (2000 UT) tablet Take 2,000 Units by mouth daily. 0 Active B IJWSMLM-M-OVCRE ACID PO Take by mouth daily. 0 Active MULTIPLE VITAMINS-CALCIUM PO Take by mouth daily. 0 Active acetaminophen (TYLENOL EXTRA STRENGTH) 500 MG tablet Take 2 tablets (1,000 mg total) by mouth every 8 (eight) hours as needed. 0 Active Calcium Carb-Cholecalciferol (CALCIUM + VITAMIN D3 PO) Take 2 tablets by mouth 2 (two) times a day. 0 Active busPIRone (BUSPAR) 5 MG tablet Take 1 tablet (5 mg total) by mouth 3 (three) times a day. 0 Active aspirin EC 81 MG tablet Take 1 tablet (81 mg total) by mouth daily. 0 Active Theanine 200 MG CAPS Take by mouth. 0 Active Collagen Hydrolysate POWD by Does not apply route. 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 Anxiety state 08/11/2014 Hypothyroidism 05/02/2014 Overview: Overview: Follows with Dr Colleen Powers Family History Medical History Relation Name Comments Heart attack Father Stroke Father Breast cancer Mother Uterine cancer Paternal Aunt Cancer Paternal Grandmother Leukemia Paternal Uncle Hemochromatosis Neg Hx Liver disease Neg Hx Relation Name Status Comments Father (Age 79) Mother (Age 68) Paternal Aunt Paternal Grandmother Paternal Uncle Social History Tobacco Use Types Packs/Day Years Used Date Smoking Tobacco: Former Cigarettes 1980 Smokeless Tobacco: Never Alcohol Use Standard Drinks/Week Comments No 0 (1 standard drink = 0.6 oz pur e alcohol) Sex and Gender Information Value Date Recorded Sex Assigned at Not on file Gender Identity Not on file Sexual Orientation Not on file Job Start Date Occupation Industry Not on file Not on file Not on file Last Filed Vital Signs Vital Sign Reading Time Taken Comments Blood Pressure 128/47 12/18/2023 10:15 AM EDT Pulse 62 12/18/2023 10:15 AM EDT Temperature 37.1 C (98.8 F) 12/18/2023 10:15 AM EDT Respiratory Rate - - Oxygen Saturation 98% 12/18/2023 10:15 AM EDT Inhaled Oxygen Concentration - - Weight 81.2 kg (179 lb) 12/18/2023 10:15 AM EDT Height 160 cm (5' 3 ) 12/18/2023 10:15 AM EDT Body Mass Index 31.71 12/18/2023 10:15 AM EDT Plan of Treatment Health Maintenance Due Date Last Done Comments COVID-19 Vaccine (#1) 1941 Depression Screening 1953 BMI Counseling 1959 Preventative Health Evaluation 1959 DTap / Tdap / Td (1 - Tdap) 1960 Shingrix-Zoster Vaccine (1 of 2) 1991 Fall Risk Assessment 2006 Osteoporosis Screening (DEXA Scan) 2006 RSV Adult > 60+ Yrs or Pregn ant (1 - 1-dose 75+ series) 2016 Pneumococcal Vaccine (2 of 2 - PPSV23 or PCV20) 05/25/2018 05/25/2017 Influenza Vaccine (#1) 2025 05/25/2017 Hepatitis B Vaccines Aged Out No long er eligible based on patient's age to complete this topic RSV Ped < 20 months Aged Out No longe r eligible based on patient's age to complete this topic Care Teams Vending Stand Supervisor Relationship Specialty Start Date End Date Makeda Levin MD [address] [address] PCP - General Internal Medicine 12/18/23
--- OUTSIDE RECORDS SUMMARY | 2025-06-17 12:47 | XMS_ITS | Clinical Summary ---
Author Organization 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 Name Role Phone Horace Levin MD Primary Care Provider [phone] Allergies Active Allergy Reactions Criticality Noted Date Comments Albuterol 05/26/2020 Amoxicillin-Pot Clavulanate 05/29/20 20 Augmentin Atorvastatin 05/26/2020 Lipitor Azithromycin 05/26/2020 Zithromax Clavulanic Acid 05/26/2020 Potassium Clavulanate Doxycycline 05/26/2020 Escitalopram 05/26/2020 Lexapro Fluticasone 05/26/2020 Fluticasone Propionate Gluten 05/26/2020 Lactose 05/26/2020 Levofloxacin 05/26/2020 Penicillins 05/26/2020 Rosuvastatin 05/26/2020 Crestor Simvastatin 05/26/2020 Sulfa (Sulfonamide Antibiotics) 05/26/2020 Sulfamethoxazole-Trimethopr im 05/26/2020 Bactrim Medications acetaminophen (TYLENOL) 500 mg tablet Take 2 tablets (1,000 mg total) by mouth every 8 (eight) hours as needed. Active B complex-vitamin C-folic acid (DIALYVITE) 100-1 mg tablet Take by mouth daily. Active calcium carbonate/vitam in D3 (CALCIUM WITH VITAMIN D3 ORAL) Take 2 tablets by mouth 2 (two) times a day. Active cholecalciferol (VITAMIN D-3) 50 mcg (2,000 unit) tablet Take 2,000 Units by mouth daily. Active PROTEIN HYDROLYSATE-COL LAGEN ORAL by Does not apply route. Active MAGNESIUM ORAL Take 100 mg by mouth daily. Active UNABLE TO FIND Misc Natural Products (LEG VEIN & CIRCULATION) TABS : Take by mouth daily Active multivitamin-fo lic acid-biotin (Ntpb-Jbcb-Enux s, hy-GR-bigxmm,) 400-2,000 mcg tablet Take by mouth daily. Active UNABLE TO FIND MULTIPLE VITAMINS-CALC IUM PO Take by mouth daily Active fish oil/omega-3/vit crook E (OMEGA-3 FATTY ACIDS PO) Take 1,500 mg by mouth 2 (two) times a day. Active theanine 200 mg capsule Take by mouth. Active levothyroxine (SYNTHROID, LEVOTHROID) 75 mcg tablet Take 1 tablet (75 mcg total) by mouth 1 (one) time each day before breakfast. Active EPINEPHrine (EpiPen 2-Rogerio) 0.3 mg/0.3 mL injection Inject 0.3 mL (0.3 mg total) into the thigh once daily as needed. 10/16/2023 Active Active Problems Problem Noted Date Diagnosed Date Lumbar stenosis with neurogenic claudication Assessment & Plan (03/22/2025 1:10 PM EDT): Patient describes pain that started in the left buttock and switched to the right buttock and down the posterior lateral leg around December 2024. At times her legs feel stiff. Although she also remembers having a lot of back pain earlier in the year, after an active day doing errands, etc., she would get pain in her back up to the thoracic region that her would have to massage her back. In December she recalls a day where she was cleaning her garage, then went out to do some weeding and when she bent over had severe pain in her back that never went away. She started physical therapy in January, does feel like it was helping her, except 2 weeks ago started doing a banded clamshell exercise while laying on her back, it flared up severe right groin pain that has made it difficult for her to walk. She has history of right ORIF, has not seen her surgeon in about 15 years. She did have an x-ray of the hip that did not show any acute findings. She was using a cane, now has to use a walker. She does feel that her ability to walk distances has gotten worse with time, at the grocery store she has to lean on a shopping cart, or lean on her walker. When she is walking distances, her right leg feels heavy. She gets some pain into the right inner calf, currently no left-sided leg pain. She rates her pain on average 4-10/10. She [facility], Dr. Harkins, to rule out lupus, had abnormal blood work. She reports h/o hemochromatosis, was able to improve her blood work with diet changes like cutting out Red meat and dairy. She denies history of MA or stroke, kidney disease, cancer, diabetes. Pt had L/S CT 03/04/2025 at [facility] that shows moderate central stenosis L4-5 due to disc bulging, ligamentous hypertrophy and facet hypertrophy. I reviewed CT images with patient in detail on the computer. We also looked at her hip x-ray. Dr. Mendoza reviewed her lumbar CT today while patient was at the office. Ms. Walker has moderate L4-5 stenosis on CAT scan, cannot have an MRI due to hardware in her elbow. She has history of a few months of severe back pain, was getting better with physical therapy, a couple weeks ago had new right groin pain after clamshell exercise. Some of her back pain with walking distances could be related to her L4-5 stenosis. I recommended she call her orthopedic surgeon to check her right hip pain, and avoid exercises at PT that flare up. Dr. Mendoza states she could offer L4-5 decompression surgery to help some of her back pain, leg heaviness with walking. We discussed conservative treatment options like continuing PT since it did help somewhat, acupuncture, she asked about health care coach. I did not recommend cortisone injections, in the past she had a cortisone injection with a bad reaction afterward. (She cannot recall what the reaction was). We discussed the surgery, risks and benefits in detail, postop expectations and restrictions. All questions answered. She will call if she is not seeing improvement with PT in time or if she decides she would like to proceed with surgery. 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 Anxiety state 08/11/2014 Hypothyroidism 05/02/2014 Overview (09/19/2023): Overview: Follows with Dr Colleen Curry Encounters Date Type Department Care Team Description 06/17/2025 8:45 AM EST Office Visit Adult Medicine [address] [phone] Horace Levin MD Hypothyroidism, unspecified type (Primary Dx); Hyperlipidemia, unspecified hyperlipidemia type; Elevated blood pressure reading; Hand cramp 06/15/2025 10:00 AM EST Office Visit [facility] Hematology Oncology [address] [place] [phone] Cheko Nieto MD Hereditary hemochromatosis ([facility]/HCC V24) (Primary Dx) 06/10/2025 7:45 AM EST Lab Draw Station - [address] [id number] Hyperlipidemia, unspecified hyperlipidemia type; Hereditary hemochromatosis (CMS/HCC V24) 05/26/2025 Results Follow-Up Adult Medicine [address] [phone] Horace Levin MD 05/12/2025 1:30 PM EDT Ancillary Procedure [facility] [address] 300 [facility] Von [address] [place] [phone] Heart murmur 04/29/2025 Telephone Adult [address] [phone] Chantal Marte MA 04/01/2025 10:30 AM EDT Treatment Outpatient Rehabilitation - [address] [phone] Otis Overton, PT Acute left-sided low back pain with left-sided sciatica (Primary Dx) 03/30/2025 10:00 AM EDT Treatment Outpatient [facility] - [address] [phone] Otis Overton, PT Acute left-sided low back pain with left-sided sciatica (Primary Dx) 03/23/2025 2:30 PM EDT Treatment Outpatient [facility] - [address] [phone] Temitope Cornelius PTA Acute left-sided low back pain with left-sided sciatica (Primary Dx) 03/22/2025 11:30 AM EDT Consult Neurosurgery [place] [address] [place] [phone] Mare Barrera, PA Lumbar stenosis with neurogenic claudication; Osteoarthritis of lumbar spine, unspecified spinal osteoarthritis complication status from Last 3 Months Surgical History Surgery Date Site/Laterality Comments ELBOW SURGERY Left two screws in left elbow. CANNOT HAVE MRI HIP ARTHROPLASTY Right fracture repair APPENDECTOMY 10/20/2020 CATARACT EXTRACTION LEG SURGERY Right surgery with placement of vinita Medical History Medical History Date Comments History of tobacco abuse 60 pk y r Osteoporosis dr curry Hypothyroid Abnormal mammogram 12/18/16 at [facility], additional pic of possible left breast mass ordered Fracture of elbow, condyle, left, closed - 2006 required surgery Intertrochanteric fracture o f right femur ([facility] V24, [facility] V28) 08/2018 Macrocytosis without anemia Elevated ferritin Hemochromatosis dr jordan Subacute cough 08/15/2023 Esophageal reflux Nausea Postnasal drip Seasonal allergies Anxiety Family History Medical History Relation Name Comments Stroke Father [place] at 79 Breast cancer Mother at 68 Relation Name Status Comments Father Mother Social History Tobacco Use Types Packs/Day Years [...] Orientation Straight 03/03/2025 11 :41 AM EDT Obstetrics History Last Filed Vital Signs Vital Sign Reading Time Taken Comments Blood Pressure 120/70 06/17/2025 9:19 AM EST Pulse 69 06/17/2025 8:38 AM EST Temperature 36.6 C (97.8 F) 06/17/2025 8:38 AM EST Respiratory Rate 12 03/01/2025 8:28 AM EDT Oxygen Saturation 99% 06/15/2025 9:56 AM EST Inhaled Oxygen Concentration - - Weight 81.6 kg (180 lb) 06/17/2025 8:38 AM EST Height 157.5 cm (5' 2 ) 06/17/2025 8:38 AM EST Body Mass Index 32.92 06/17/2025 8:38 AM EST Plan of Treatment Upcoming Encounters Date Type Department Care Team (Late st Contact Info) Description 06/22/2025 9:00 AM EST Office Visit Urogynecology [address] [phone] Shahnaz Luo MD [address] [facility] [address] [place] [address] 08/04/2025 10:00 AM EST Office Visit Adult Medicine [address] [phone] Horace Levin MD [address] [place], [place] 12/09/2025 9:30 AM EDT Office Visit [facility] Hematology Oncology [address] [place] [phone] Cheko Nieto MD [address] [place] [phone] Health Maintenance Due Date Last Done Comments DTaP,Tdap,and Td Vaccines (1 - Tdap) 1960 Zoster Vaccines (1 of 2) 1991 RSV Immunization Adult Patients (1 - 1-dose 75+ series) 2016 Pneumococcal Vaccine: 50+ Years (2 of 2 - PCV20 or PCV21) 05/25/2018 05/25/2017 Falls Risk Assessment 06/30/2022 Medicare Annual Wellness Visit 06/30/2022 Osteoporosis Screening (Bone Density Screening) 06/30/2022 Social Influencers of Health Screening 06/30/2022 Depression Screening 07/28/2024 COVID-19 Vaccine ( - season) 2025 Influenza Vaccine (#1) 2025 05/25/2017 Cholesterol Screening (Lipid Panel) 06/10/2030 06/10/2025, 12/31/2024, 11/24/2024, Additional history exists HIB Vaccines Aged Out No longer eligi ble based on patient's age to complete this topic HPV Vaccines Aged Out No longer eligi ble based on patient's age to complete this topic Hepatitis A Vaccines Aged Out No long er eligible based on patient's age to complete this topic Hepatitis B Vaccines Aged Out No long er eligible based on patient's age to complete this topic IPV Vaccines Aged Out No longer eligi ble based on patient's age to complete this topic MMR Vaccines Aged Out No longer eligi ble based on patient's age to complete this topic Meningococcal ACWY Vaccine Aged Out N o longer eligible based on patient's age to complete this topic Meningococcal B Vaccine Aged Out No l onger eligible based on patient's age to complete this topic RSV Immunization Patients Under 20 months Aged Out No longer eligible based on patient's age to complete this topic Varicella Vaccines Aged Out No longer eligible based on patient's age to complete this topic Goals Goal Patient Goal Type Associated Problems [...] technique for sup<->sit transfers in 5/5 trials. Procedures Procedure Name Priority Date/Time Associated Diagnosis Comments CBC WITH AUTO DIFFERENTIAL Routine 06/10/2025 7:58 AM EST Hereditary hemochromatosis (CMS/HCC V24) CBC AND DIFFERENTIAL Routine 06/10/2025 7:58 AM EST Hereditary hemochromatosis (CMS/HCC V24) FERRITIN Routine 06/10/2025 7:58 AM EST Hereditary hemochromatosis (CMS/HCC V24) IRON AND TIBC Routine 06/10/2025 7:58 AM EST Hereditary hemochromatosis (CMS/HCC V24) COMPREHENSIVE METABOLIC PANEL Routine 06/10/2025 7:58 AM EST Hereditary hemochromatosis (CMS/HCC V24) VITAMIN B12 Routine 06/10/2025 7:58 AM EST Hereditary hemochromatosis (CMS/HCC V24) LIPID PANEL WITH REFLEX TO DIRECT LDL Routine 06/10/2025 7:58 AM EST Hyperlipidemia, unspecified hyperlipidemia type TRANSTHORACIC ECHOCARDIOGRAM (TTE) COMPLETE Routine 05/12/2025 2:20 PM EDT Heart murmur from Last 3 Months Results * (ABNORMAL) Lipid panel with reflex to direct LDL (06/10/2025 7:58 AM EST) Cholesterol 237(H) 0 - 200 mg/dL LAB CHEMISTRY METHOD 06/10/2025 9:[address] [facility] Triglycerides 112 0 - 150 mg/dL LAB CHEMISTRY METHOD 06/10/2025 9:[address] [facility] HDL 65 >=40 mg/dL LAB CHEMISTRY METHOD 06/10/2025 9:[address] [facility] LDL Calculated 150(H) 0 - 100 mg/dL LAB CHEMISTRY METHOD 06/10/2025 9:[address] [facility] Comment:Estimated LDL Calcul ated using equation: Total cholesterol - HDL cholesterol - (Triglycerides/5) VLDL Cholesterol Isaac 22.4 mg/dL LAB CHEMISTRY METHOD 06/10/2025 9:07 AM [facility] Non HDL Chol. (LDL+VLDL) 172(H) <145 mg/dL LAB CHEMISTRY METHOD 06/10/2025 9:07 AM [facility] Chol/HDL Ratio 3.6 0.0 - 4.4 LAB CHEMISTRY METHOD 06/10/2025 9:07 AM [facility] Blood Venous blood specimen / Unknown Venipuncture / Unknown 06/10/2025 7:58 AM EST 06/10/2025 8:08 AM EST us Horace Levin MD LAB BLOOD ORDERABLES Final Result [facility] [address] [place] [address], [place] [phone] * (ABNORMAL) CBC auto differential (06/10/2025 7:58 AM EST) WBC 4.4(L) 4.8 - 10.8 K/mcL LAB HEMETOLOGY METHOD 06/10/2025 8:19 AM [facility] RBC 4.20 3.80 - 4.80 M/mcL LAB HEMETOLOGY METHOD 06/10/2025 8:19 AM [facility] Hemoglobin 14.0 11.5 - 16.0 g/dL LAB HEMETOLOGY METHOD 06/10/2025 8:19 AM [facility] Hematocrit 41.8 35.0 - 47.0 % LAB HEMETOLOGY METHOD 06/10/2025 8:19 AM [facility] MCV 100.0(H) 79.0 - 98.0 FL LAB HEMETOLOGY METHOD 06/10/2025 8:19 AM [facility] MCH 33.5(H) 27.0 - 32.0 pcg LAB HEMETOLOGY METHOD 06/10/2025 8:19 AM [facility] MCHC 33.5 32.0 - 37.0 g/dL LAB HEMETOLOGY METHOD 06/10/2025 8:19 AM [facility] RDW 12.1 11.0 - 15.0 % LAB HEMETOLOGY METHOD 06/10/2025 8:19 AM [facility] Platelets 195 130 - 400 K/mcL LAB HEMETOLOGY METHOD 06/10/2025 8:19 AM [facility] MPV 9.6 7.0 - 11.0 FL LAB HEMETOLOGY METHOD 06/10/2025 8:19 AM [facility] NRBC 0.0 <1.0 % LAB HEMETOLOGY METHOD 06/10/2025 8:19 AM [facility] NRBC Absolute 0.00 <0.10 K/mcL LAB HEMETOLOGY METHOD 06/10/2025 8:19 AM [facility] Neutrophils Relative 50.8 % LAB HEMETOLOGY METHOD 06/10/2025 8:19 AM [facility] Lymphocytes Relative 36.5 % LAB HEMETOLOGY METHOD 06/10/2025 8:19 AM [facility] Monocytes Relative 9.1 % LAB HEMETOLOGY METHOD 06/10/2025 8:19 AM [facility] Eosinophils Relative 2.7 % LAB HEMETOLOGY METHOD 06/10/2025 8:19 AM [facility] Basophils Relative 0.7 % LAB HEMETOLOGY METHOD 06/10/2025 8:19 AM [facility] Immature Granulocytes Relative 0.2 % LAB HEMETOLOGY METHOD 06/10/2025 8:19 AM [facility] Neutrophils Absolute 2.24 1.50 - 7.00 K/mcL LAB HEMETOLOGY METHOD 06/10/2025 8:[address] [facility] Lymphocytes Absolute 1.61 1.00 - 5.00 K/mcL LAB HEMETOLOGY METHOD 06/10/2025 8:19 AM [facility] Monocytes Absolute 0.40 0.20 - 1.00 K/mcL LAB HEMETOLOGY METHOD 06/10/2025 8:[address] [facility] Eosinophils Absolute 0.12 0.00 - 0.50 K/[facility] LAB HEMETOLOGY METHOD 06/10/2025 8:19 AM [facility] Basophils Absolute 0.03 0.00 - 0.20 K/[facility] LAB HEMETOLOGY METHOD 06/10/2025 8:19 AM [facility] Immature Granulocytes Absolute 0.01 0.00 - 0.03 K/[facility] LAB HEMETOLOGY METHOD 06/10/2025 8:19 AM [facility] Blood Venous blood specimen / Unknown Venipuncture / Unknown 06/10/2025 7:58 AM EST 06/10/2025 8:09 AM EST Cheko Nieto MD LAB BLOOD ORDERABLES Final Result [facility] [address] [place] [address], * Iron and TIBC (06/10/2025 7:58 AM EST) Iron 140 40 - 150 mcg/dL LAB CHEMISTRY METHOD 06/10/2025 8:[address] [facility] TIBC 296 250 - 450 mcg/dL LAB CHEMISTRY METHOD 06/10/2025 8:44 AM [facility] Iron Saturation 47 15 - 50 % LAB CHEMISTRY METHOD 06/10/2025 8:[address] [facility] Blood Venous blood specimen / Unknown Venipuncture / Unknown 06/10/2025 7:58 AM EST 06/10/2025 8:08 AM EST us Cheko Nieto MD LAB BLOOD ORDERABLES Final Result Performing Organization Address [facility]/ZIP Co de Phone Number [facility] [address] [place] [address], [place] [phone] * Ferritin (06/10/2025 7:58 AM EST) [facility] Ferritin 117 8 - 252 ng/mL LAB CHEMISTRY METHOD 06/10/2025 9:[address] [facility] Blood Venous blood specimen / Unknown Venipuncture / Unknown 06/10/2025 7:58 AM EST 06/10/2025 8:08 AM EST us Cheko Nieto MD LAB BLOOD ORDERABLES Final Result Performing Organization Address [facility]/ZIP Co de Phone Number [facility] [address] [place] [address], [place] [phone] * Vitamin B12 (06/10/2025 7:58 AM EST) [facility] Vitamin B-12 522 250 - 900 pcg/mL LAB CHEMISTRY METHOD 06/10/2025 9:[address] [facility] Blood Venous blood specimen / Unknown Venipuncture / Unknown 06/10/2025 7:58 AM EST 06/10/2025 8:08 AM EST us Cheko Nieto MD LAB BLOOD ORDERABLES Final Result Performing Organization Address [facility]/ZIP Co de Phone Number [facility] [address] [place] [address], [place] [phone] * Comprehensive metabolic panel (06/10/2025 7:58 AM EST) [facility] Sodium 141 133 - 145 mmol/L LAB CHEMISTRY METHOD 06/10/2025 9:07 AM [facility] Potassium 4.4 3.5 - 5.5 mmol/L LAB CHEMISTRY METHOD 06/10/2025 9:07 AM [facility] Chloride 107 96 - 110 mmol/L LAB CHEMISTRY METHOD 06/10/2025 9:07 AM [facility] CO2 29 21 - 32 mmol/L LAB CHEMISTRY METHOD 06/10/2025 9:07 AM [facility] Anion Gap 5 3 - 11 LAB CHEMISTRY METHOD 06/10/2025 9:07 AM [facility] Glucose 98 70 - 100 mg/dL LAB CHEMISTRY METHOD 06/10/2025 9:07 AM [facility] BUN 17 5 - 25 mg/dL LAB CHEMISTRY METHOD 06/10/2025 9:07 AM [facility] Creatinine 0.73 0.50 - 1.10 mg/dL LAB CHEMISTRY METHOD 06/10/2025 9:07 AM [facility] eGFR 81 >=60 mL/min/1. 73m2 LAB CHEMISTRY METHOD 06/10/2025 9:07 AM [facility] Comment:Calculation based on the Chronic Kidney Disease Epidemiology Collaboration (CKD-EPI) equation refit without adjustment for race. BUN/Creatinine Ratio 23.3 LAB CHEMISTRY METHOD 06/10/2025 9:07 AM [facility] Calcium 9.7 8.5 - 10.5 mg/dL LAB CHEMISTRY METHOD 06/10/2025 9:07 AM [facility] AST (SGOT) 13 10 - 42 unit/L LAB CHEMISTRY METHOD 06/10/2025 9:07 AM [facility] ALT (SGPT) 27 10 - 60 unit/L LAB CHEMISTRY METHOD 06/10/2025 9:07 AM [facility] Alkaline Phosphatase 90 42 - 121 unit/L LAB CHEMISTRY METHOD 06/10/2025 9:07 AM [facility] Total Protein 6.2 6.0 - 8.0 g/dL LAB CHEMISTRY METHOD 06/10/2025 9:[address] [facility] Albumin 3.6 3.2 - 5.0 g/dL LAB CHEMISTRY METHOD 06/10/2025 9:[address] [facility] Total Bilirubin 0.7 0.0 - 1.4 mg/dL LAB CHEMISTRY METHOD 06/10/2025 9:[address] [facility] Blood Venous blood specimen / Unknown Venipuncture / Unknown 06/10/2025 7:58 AM EST 06/10/2025 8:08 AM EST us Cheko Nieto MD LAB BLOOD ORDERABLES Final Result [facility] [address] [place] [address], [place] [phone] * TRANSTHORACIC ECHOCARDIOGRAM (TTE) COMPLETE (05/12/2025 2:20 PM EDT) Left Atrium Minor [place] 5.4 cm CV PACS Left At[facility] [place] 5.5 cm CV PACS LA Area Sys (A2C) 18 cm2 CV PACS LA Area Sys (A4C) 14 cm2 CV PACS LA Volume (BP) 37 mL CV PACS RA Area 13.4 cm2 CV PACS RA 2D Volume 30 mL CV PACS AV Regurgitation PHT 669 ms CV PACS AR Max Velocity 4.0 m/s CV PACS AV Regurgitant Volume 64 mmHg CV PACS AV Peak Raffy 2.2 m/s CV PACS AV Peak Gradient 19 mmHg CV PACS AV Mean Gradient 9 mmHg CV PACS Ao VTI 49.3 cm CV PACS AV Area Continuity Equation 1.4 cm2 CV PACS AV Area Peak Velocity 1.4 cm2 CV PACS Aortic Sinus Valsalva 3.4 cm CV PACS Ascending Aorta 3.4 cm CV PACS IVSD 0.9 0.6 - 0.9 cm CV PACS LVIDD 4.6 3.8 - 5.2 cm CV PACS LVIDS 3.1 2.2 - 3.5 cm CV PACS LVOT Diameter 2.0 cm CV PACS LVOT Mean Raffy 0.7 m/s CV PACS LVOT Mean Grad 2 mmHg CV PACS LVOT Peak VTI 22.0 cm CV PACS LVOT Peak Raffy 1.0 m/s CV PACS LVOT Peak Gradient 4 mmHg CV PACS LVPWD 0.9 0.6 - 0.9 cm CV PACS MV E' Tissue Velocity Lateral 5 cm/s CV PACS MV E' Tissue Velocity Septal 5 cm/s CV PACS LVOT Area 3.1 cm2 CV PACS LVOT Stroke Volume 69 mL CV PACS MV Deceleration [place] 4.8 m/s2 CV PACS E Wave Deceleration Time 225 119 - 242 ms CV PACS MV PHT 66 ms CV PACS MV Peak A Raffy 1.10 m/s CV PACS MV Peak E Raffy 1.09 m/s CV PACS MV Area PHT 3.3 cm2 CV PACS PV Acceleration Time 74 ms CV PACS PV Acceleration Time 74 ms CV PACS RV Diastolic Basal Dimension 2.6 2.5 - 4.1 cm CV PACS RV S' 14 cm/s CV PACS TAPSE 23 mm CV PACS TR Peak Velocity 2.61 m/s CV PACS TR Peak Gradient 27 mmHg CV PACS E/E' Ratio Septal 22 CV PACS E/E' Ratio Averaged 22 CV PACS LVOT Stroke Index 38 mL/m2 CV PACS Relative Wall Thickness ratio 0.39 CV PACS LVOT:AV VTI Index 0.45 CV PACS FS 33 % CV PACS LV Mass 2D 138 g CV PACS Ascending Aorta Index 1.87 cm/m2 CV PACS LVOT flow 220 mL/s CV PACS RA 2D Volume Index 16 mL/m2 CV PACS MARIANNE Index (VTI) 0.77 cm2/m2 CV PACS MARIANNE Index (Pk Raffy) 0.77 cm2/m2 CV PACS LVIDD Index 2.53 cm/m2 CV PACS LVIDS Index 1.70 cm/m2 CV PACS AV Velocity Ratio 0.45 CV PACS E/A Ratio 1.0 CV PACS E/E' Ratio Lateral 22 CV PACS LA Volume Index (BP) 20 mL/m2 CV PACS LV Mass Index 2D 76 g/m2 CV PACS BSA 1.88 m2 CV PACS Right Ventricular Peak Systolic Pressure 30 mmHg CV PACS Est. RA Pressure 3 mmHg CV PACS Anatomical Region Laterality Modality Ultrasound Narrative 05/13/2025 11:07 AM EDT Left ventricle cavity size is normal. Left ventricular systolic function is in the normal range with an ejection fraction of 55-60%. No regional LV wall motion abnormalities noted. Left ventricle wall thickness is normal. Right ventricle cavity is normal. Right ventricular systolic function is normal. No hemodynamically significant valve disease Left Ventricle Left ventricle cavity size is normal. Wall thickness is at upper limits of normal. Systolic function is normal with an ejection fraction of 55-60%. There are no regional LV wall motion abnormalities. Indeterminate diastolic function. Right Ventricle Right ventricle cavity appears normal. Systolic function is normal. Left Atrium Left atrium cavity size is normal. Right Atrium Right atrium cavity is normal. IVC/SVC Inferior vena cava structure is normal. RA pressures is estimated to be 3 mmHg (IVC diameter <21 mm and decreases >50% during inspiration). Mitral Valve The leaflets are mildly thickened. There is annular calcification. There is trace regurgitation. There is no evidence of mitral valve stenosis. Tricuspid Valve The leaflets exhibit normal excursion. There is mild regurgitation. The RVSP is estimated at 30 mmHg. Aortic Valve The aortic valve is trileaflet. There is mild regurgitation. There is no evidence of aortic valve stenosis. Pulmonic Valve Pulmonic valve structure is normal. There is trace pulmonic valve regurgitation. Ascending Aorta The aorta appears normal in size. Pericardium There is no pericardial effusion. Study Details Overall the study quality was adequate. Horace Levin MD CV ECHO PROCEDURES Final Re sult from Last 3 Months Insurance MEDICARE WELLPOINT Care Teams Mutual Fund Sales Agent Relationship Specialty Start Date End Date Horace Levin MD [address] [place] [address] PCP - General Internal Medicine 09/01/24
--- OUTSIDE RECORDS SUMMARY | 2025-06-17 12:47 | XMS_ITS | Clinical Summary ---
Author Organization [facility] Address [address] [facility] [address] [place] [id number] Phone Care Team Providers Care Varnish Supervisor Name Role Phone Faina Evans MD Unavailable [phone] Lilo Verdin MD Primary Care Prov ider Faina Evans MD Unavailable [phone] Allergies Active Allergy Reactions Criticality Noted Date Comments Albuterol Other (See Comments) 05/16/2014 Made pt jittery, pt did not like side effects Atorvastatin Other (See Comments) 05/02/2014 Leg and abdominal pain Amoxicillin-Pot Clavulanate 12/26/2021 Azithromycin Diarrhea 05/02/2014 Sulfamethoxazole-Trimet hoprim 12/26/2021 Clavulanic Acid 05/26/2020 Doxycycline Monohydrate 12/26/2021 Escitalopram Other (See Comments) 10/14/2014 Abdominal cramping Fluticasone Other (See Comments) 10/14/2014 Elevated blood pressure Gluten Protein 12/26/2021 Levofloxacin Headaches 05/02/2014 Milk Containing Products (Dairy) 12/26/2021 Rosuvastatin Swelling 05/02/2014 dyspnea Simvastatin Other (See Comments) 05/02/2014 Leg pains Soy 07/27/2020 Sulfa (Sulfonamide Antibiotics) Myalgia 02/13/2017 Wheat 12/26/2021 Medications THEANINE ORAL Take 1 capsule by mouth daily. Active acetaminophen (TYLENOL) 500 MG tablet Take 500 mg by mouth every 6 (six) hours as needed. Active SYNTHROID 100 mcg tabletIndications:A cquired hypothyroidism Take 1 tablet (100 mcg total) by mouth every morning. BRAND NAME ONLY, CLAUDIA 90 tablet 2 2 Active propylene glycol (SYSTANE BALANCE OPHT) Apply to eye. Active ktvxpkok-hrn-hkress s gluconate (CENTRUM WITH IRON) 9 mg iron/15 mL Liqd Take 15 mL by mouth daily. Active calcium carb/magnesium oxid/D3 (CALCIUM MAGNESIUM + D ORAL) Take 4 capsules by mouth daily. Active loratadine (CLARITIN) 10 mg tablet Take 1 tablet by mouth daily as needed. 4 Active EPIPEN 0.3 mg/0.3 mL auto-injector Inject 0.3 mg into the muscle once as needed. 4 Active Active Problems Problem Noted Date Diagnosed Date Acquired hypothyroidism 04/28/2022 Pain of toe of right foot 04/28/2022 Cataract 12/26/2021 Hearing loss 12/26/2021 Bronchitis 12/26/2021 Arthritis 12/26/2021 Diverticulitis 12/26/2021 Osteoporosis 12/26/2021 Assessment & Plan (12/16/2023 12:03 PM EDT): The patient continues to take calcium and vitamin D supplements. She has not wanted to use antiresorptive medications. Based on her most recent DXA scan done on 05/30/2023 she has not had significant decrease in bone mineral density of the spine or hips. Since she does not want to use antiresorptive medication will encourage her to continue calcium, vitamin D and weightbearing exercises. She feels that she was taking too much magnesium and cut back. I will request a magnesium level she can get done today and again and the follow-up visit in 1 year. Assessment & Plan (05/09/2023 10:35 AM EDT): The patient has osteoporosis she has not wanted to use antiresorptive medications. She is now getting adequate calcium intake and at least 1400 units of vitamin D. I will have to check vitamin D levels to make sure that her vitamin D levels are in the reference range. She is past due for DXA scan and she was supposed to get this done at [facility]. I did send a request for this to be done. I reordered it today and I asked the patient to contact [facility] radiology department to get the study done. I we will give her a follow-up appointment in 6 months she should repeat lab work prior to then. Assessment & Plan (11/07/2022 11:20 AM EDT): The patient has been diagnosed with osteoporosis as early as 2006. She has had improvement in her bone mineral density despite the fact that she has not use antiresorptive medications and I believe that that is because she was taking calcium and vitamin D supplements. She states that she stopped it because she was getting gas and stomach problems. We will see if she cannot take calcium supplements that she needs to have more foods that contain calcium. This is difficult because she has lactose intolerance but the foods that contain calcium include greens. I have given her a list of medications and she should see what she can take. The bottom line is that she needs another 600 mg extra of what she currently gets in her diet. Otherwise she needs to take a tablet of 600 mg of calcium daily with food. She needs to start taking the vitamin D again for certain. At this point she does not want to use antiresorptive medications. So what I will do is give her a follow-up appointment in a year I will check N-telopeptide and procollagen levels as baseline. She is due for repeat DXA scan on 02/07/2023. Assessment & Plan (08/08/2022 10:31 AM EST): The patient has osteoporosis unclear exactly when she was diagnosed. Risk factors for osteoporosis include age, menopause and remote tobacco use. Currently she has inadequate calcium intake. Currently she is not taking vitamin D supplements. She has had right hip fracture and left elbow fracture and 2.5 inch decrease in height. At this point I will do biochemical work-up for secondary causes of osteoporosis. She informs me that she does not want to take any medications. She wants to do natural management of this is usually weightbearing. Nitro also could be taking vitamin D but she also has problems with vitamin D supplements. She could take calcium 600 mg once a day in addition to her diet. We can discuss this further on the follow-up visit. But if the patient does have osteoporosis I did mention to her that the guidelines say she should use antiresorptive medications. 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 Gastroesophageal reflux disease 12/26/2021 Thyroid condition 12/26/2021 History of appendectomy 12/26/2021 History of hip surgery 12/26/2021 History of elbow surgery 12/26/2021 History of cataract surgery 12/26/2021 History of bladder suspension procedure 12/27/19 Former smoker 12/26/2021 Overview (12/26/2021): 20pack years, quit apx 1979 Malaise and fatigue 12/26/2021 Immunizations Immunization Administration Dates Next Due Influenza High-Dose Trivalent Preservative Free IM 05/25/2017 Pneumococcal conjugate PCV13 05/25/2017 Family History Medical History Relation Comments Hyperlipidemia Daughter Hypertension Daughter Heart attack Father Breast cancer Mother Cancer Mother Relation Status Comments Brother 1 Alive Brother 2 Alive Daughter Alive Father Mother Son 1 Alive Son 2 Alive Social History Tobacco Use Types Packs/Day Years Used Date Smoking Tobacco: Former Cigarettes Q uit: 1980 Smokeless Tobacco: Never Tobacco Cessation:Counseling Given: Not Answered Alcohol Use Standard Drinks/Week Comments Not Currently 0 (1 standard drink = 0.6 oz pur e alcohol) Child or Family Care Answer Date Record ed Do you have problems with on e of the following making it difficult for you to work, study, or receive health care? No 04/04/2022 Education Answer Date Recorded Are you interested in more education? Not on rachel e 04/08/2024 Are you concerned about learning? Not on file 04/08/2024 No 04/08/2024 No 04/08/2024 Food Answer Date Recorded Within the past 6 months we worried whether our food would run out before we got money to buy more. Never True 04/04/2022 Within the past 6 months the food we bought just didn't last and we didn't have enough money to get more. Never True Residential Stability Answer Date Recor ded What is your housing situation today? I have catherine sing 04/04/2022 How many times have you move d in the past 12 months? Zero (I did not move) 04/04/2022 Paying for Meds Answer Date Recorded Do you have trouble paying for medicines? No 04/04/2022 Paying Utility Bills Answer Date Record ed Do you have trouble paying your heating or elect ricity bill? No 04/04/2022 Transportation Answer Date Recorded Has the lack of transportati on kept you from medical appointments or from getting medications? No 04/04/2022 Unemployment Answer Date Recorded Are you currently unemployed or working on a part-time or temporary basis, and looking for work? No 04/04/2022 Digital Access Answer Date Recorded No 12/22/2022 No 12/22/2022 Reliable internet access at home? Not on file 12/22/2022 Device with a working camera? Not on file Comments Unknown Sex and Gender Information Value Date Recorded Sex Assigned at Not on file Legal Sex Female 3:40 PM EST Gender Identity Not on file Sexual Orientation Not on file Last Filed Vital Signs Vital Sign Reading Time Taken Comments Blood Pressure 112/60 12/16/2023 11:46 AM EDT Pulse 66 12/16/2023 11:46 AM EDT Temperature 36.6 C (97.8 F) 04/04/2022 10:31 AM EDT Respiratory Rate - - Oxygen Saturation 97% 12/16/2023 11:46 AM EDT Inhaled Oxygen Concentration - - Weight 82.3 kg (181 lb 6.4 oz) 12/16/2023 11:46 AM EDT Height 158.1 cm (5' 2.25 ) 12/16/2023 11:46 AM E DT Body Mass Index 32.91 12/16/2023 11:46 AM EDT Plan of Treatment Health Maintenance Due Date Last Done Comments Adult Td,Tdap Booster 1940 ZOSTER VACCINES (1 of 2) 1991 RSV VACCINE (1 - 1-dose 75+ series) 2016 PNEUMOCOCCAL VACCINES (50+ years) (2 of 2 - PCV20 or PCV21) 05/25/2018 05/25/2017 TSH LEVEL 12/26/2022 12/26/2021 DEPRESSION SCREENING 04/04/2023 04/04/2022, 12/26/2021 INFLUENZA VACCINE (#1) 2025 7, 05/25/2017 COVID-19 VACCINE (1 - 2024-2 6 season) 2025 OSTEOPOROSIS SCREENING INITI AL (ONE-TIME) Completed 05/09/2023, 11/07/2022 HEPATITIS A VACCINES Aged Out No long er eligible based on patient's age to complete this topic HIB VACCINES Aged Out No longer eligi ble based on patient's age to complete this topic MENINGOCOCCAL VACCINES (ACWY) Aged Out No longer eligible based on patient's age to complete this topic MENINGOCOCCAL VACCINES (B) Aged Out N o longer eligible based on patient's age to complete this topic Medical Devices Not on file Procedures Procedure Name Priority Date/Time Associated Diagnosis Comments BD DXA MONITORING Routine 05/09/2023 10: 24 AM EDT Age-related osteoporosis without current pathological fracture TSH WITH REFLEX Routine 12/26/2021 12:23 PM EDT Thyroid condition from Last 3 Months or Most Recently Relevant to Health Maintenance Results * TSH with reflex (12/26/2021 12:23 PM EDT) TSH 1.86 0.27 - 4.20 uIU/mL [facility] Blood 12/26/2021 12:2 3 PM EDT 12/26/2021 12:33 PM EDT us Faina Evans MD LAB BLOOD BKR ORDERABLES Pinky guadarrama Result [facility] [address] [place] [address] from Last 3 Months or Most Recently Relevant to Health Maintenance Insurance MEDICARE PART A & B [facility] MEDICARE SUPPLEMENT MEDICARE PART A & B [facility] MEDICARE SUPPLEMENT MEDICARE PART A & B [facility] MEDIC[facility] SUPPLEMENT MEDICARE PART A & B [facility] MEDICARE SUPPLEMENT MEDICARE PART A & B [employer] MEDICARE SUPPLEMENT MEDICARE PART A & B [employer] MEDICARE SUPPLEMENT MEDICARE PART A & B [employer] MEDICARE SUPPLEMENT MEDICARE PART A & B [employer] MEDICARE SUPPLEMENT MEDICARE PART A & B [facility] MEDIC[facility] SUPPLEMENT Advance Directives For more information, please contact: [phone] (9AM - 5PM [facility], Friday-Friday) Documents on File Type Date Recorded Patient Leasing Sales Consultant Expl anation Healthcare Proxy 12/03/2021 3:25 PM Care Teams Varnish Supervisor Relationship Specialty Start Date End Date Lilo Verdin MD [address] [place] [id number] PCP - General Internal Medicine 11/07/22 Faina Evnas MD [email or web address] Consulting Provider Geriatric Medicine 01/02/22 Faina Evans MD Geriatric Medicine 05/31/24 Additional Source Comments The information contained in this document represents components of the legal health record. It is not the complete legal health record.[facility]
--- OUTSIDE RECORDS SUMMARY | 2025-06-17 12:47 | XMS_ITS | Continuity of Care Document ---
Author Organization [facility] [address] [address] [place] [address] Phone [phone] Care Team Providers Care Vp Account Director Name Role Phone Horace Levin MD Care Team Information Feather Trimmer [phone] Problems Active Problems Provider Date Osteoporosis Kinjal Reyes CNP Onse t: 02/25/2025 Hypothyroidism Kinjal Reyes CNP Onse t: 02/25/2025 Anxiety Kinjal Reyes CNP Onse t: 02/25/2025 Depressive disorder Kinjal Reyes CNP Onset: 02/25/2025 Hypercholesterolemia Kinjal Reyes CNP Onset: 02/25/2025 Hemochromatosis Kinjal Reyes CNP Onse t: 02/25/2025 Social History Type Date Description Comments Sex Female Sex Unknown Tobacco Use Start: Unknown End: Unknown Quit stopped age 41 ETOH Use Denies alcohol use Allergies and adverse reactions Description No Known Drug Allergies Medications Active Medications SIG Qnty Indications Ordering Provider Date [id number] Tablets Take 1 Tablet By Mouth Every Day. Ladarius 1 90tabs Kinjal Reyes CNP Vital Signs Date Vital Result Comment 05/31/2025 10:05am BP Systolic 113 mmHg BP Diastolic 63 mmHg Heart Rate 71 /min Height 62 inches 5'2 Weight 176.25 lb BMI (Body Mass Index) 32.2 kg/m2 Results Test Acquired Date Facility Test Result H/L Range N ote TSH Rfx on Abnormal to Free T4 05/25/2025 [facility] TSH RFX On Abnormal To Free T4 7.080 uIU/mL High 0.450-4.50 0 1 T4,Free (Direct) 1.22 ng/dL 0.82 -1.77 Alkaline Phosphatase 05/25/2025 [facility] Alkaline Phosphatase 90 IU/L 48-129 Vitamin D, 25-Hydroxy 05/25/2025 [facility] Vitamin D, 25-Hydroxy 42.7 ng/mL 30.0-100.0 2 1 A courtesy copy of t his report has been sent to the patient 2 Vitamin D deficiency has been defined by the [place] of Medicine and an Endocrine Society practice guideline as a level of serum 25-OH vitamin D less than 20 ng/mL (1,2). The Endocrine Society went on to further define vitamin D insufficiency as a level between 21 and 29 ng/mL (2). 1. IOM ([place] of Medicine). 2010. Dietary reference intakes for calcium and D. [place]: The National Academies Press. 2. Bennie MF, Lauro REEVES, Dameon GOLD, et al. Evaluation, treatment, and prevention of vitamin D deficiency: an Endocrine Society clinical practice guideline. JCEM. 2010; 96(7):1911-30. Medical Devices Description No Information Available Encounters Type Date Location Provider Dx Diagnosis Office Visit 05/31/2025 10:00a Main Office Kinjal Reyes CNP E03.9 Hypothyroidism, unspecified Assessments Date Code Description Provider 05/31/2025 E03.9 Hypothyroidism, unspecified Kinjal Reyes CNP Plan of Treatment Future Appointment(s):* 09/27/2025 10:40 am - Kinjal Reyes CNP at Main Office 05/31/2025 - Kinjal Reyes CNP* E03.9 Hypothyroidism, unspecified* New Labs:* TSH RFX On Abnormal To Free T4, Ordered: 05/31/25 Functional Status Description No Information Available Mental Status Description No Information Available Referrals Description No Information Available
== END 2025-06-17 12:21 | disposition home or self-care (01) ==
LOC: HO.MAMMO 12:20
PROVIDERS: PCP Internal Medicine; Visit Provider Internal Medicine Endocrinology, Diabetes & Metabolism
DX: M81.0 Age-related osteoporosis without current pathological fracture (principal)
CPT/HCPCS: 77080

== ENCOUNTER → 2025-06-17 12:30 | Outpatient (BNV) | payer MEDICARE, OTHER, SELFPAY | PROVIDERS: PCP Internal Medicine; Visit Provider Radiology Diagnostic Radiology | DX: E28.39 Other primary ovarian failure (principal) | CPT/HCPCS: 77080 ==